=== PATIENT | male | born 1955 | race Caucasian/White ===

== ENCOUNTER 2022-11-19 19:33 | Inpatient (IN) | payer OTHER ==
[~2022-11-19 19:33] MED LIST: Iopamidol 300 61% 100 ML VIAL FS ONE
[2022-11-19] MEDS ORDERED: Ipratropium/Albuterol 3 ML NEB ONE ×2 (19:45→20:08)
[2022-11-19] MEDS ORDERED: Furosemide 40 MG/4 ML VIAL ONE (19:58)
[2022-11-19] MEDS ORDERED: methylPREDNISolone Sod Succ/PF 125 MG/2 ML VIAL ONE (19:58)
[2022-11-19] MEDS ORDERED: Magnesium 2 GM/50 ML BAG (IN WATER) ONE (19:59)
[2022-11-19 20:07] LABS: #Basophils 0.1 10x3/uL (0.0-0.2); #Eosinphils 0.2 10x3/uL (0.0-0.5); #Monocytes 0.7 10x3/uL (0.0-1.1); #Neutrophils 6.5 10x3/uL (1.5-8.4); %Basophils 0.6 % (0.0-2.0); %Lymphocytes 20.3 % (18.0-47.0); %Monocytes 7.3 % (0.0-10.0); %Neutrophils 69.4 % (40.0-75.0); Hemoglobin 12.4 g/dL (13.5-17.5); Mean Corpuscular HGB CONC 31.5 g/dL (32.0-36.0); Mean Corpuscular Hemoglobin 28.2 pg (27.0-33.0); Mean Corpuscular Volume 89.7 fl (81.2-95.1); Mean Platelet Volume 11.3 fl (7.4-10.4); Platelet Count 192 10x3/uL (150-450); RBC Distribution Width 15.9 % (11.5-14.5); Red Blood Cell (RBC) Count 4.39 10x6/uL (4.32-5.72); White Blood Cell (WBC) Count 9.4 10x3/uL (3.5-10.5)
[2022-11-19 20:18] LABS: Acetaminophen Less than 10.0 mcg/mL (10.0-30.0); Alcohol Less than 10 mg/dL (Less than 10); D-Dimer Test 1.59 mg/L FEU (0.19-0.50); INR-International Normal Ratio 1.1; PTT 25.5 sec (22.0-33.0); Prothrombin Time 11.6 sec (9.5-12.1); Salicylate Less than 8.0 mg/dL (15.0-30.0)
[2022-11-19 20:19] LABS: ALT (SGPT) 11 U/L (8-55); AST (SGOT) 22 U/L (5-34); Albumin 4.1 g/dL (3.4-4.8); Alkaline Phosphatase 82 U/L (40-110); Anion Gap 13 mmol/L (10-20); BUN (Urea Nitrogen) 17 mg/dL (8.4-25.7); Bilirubin, Total 1.2 mg/dL (0.2-1.2); Calc. Creatinine Clearance 0 mL/min (70-130); Calcium 8.8 mg/dL (7.8-10.44); Carbon Dioxide 26 mmol/L (23-31); Chloride 105 mmol/L (98-107); Estimated GFR 54; Globulin 3.5 g/dL (2.4-3.5); Glucose 157 mg/dL (80-115); Lipase 11 U/L (8-78); Magnesium 2.5 mg/dL (1.6-2.6); Potassium 4.5 mmol/L (3.5-5.1); Protein, Total 7.6 g/dL (5.8-8.1); Sodium 139 mmol/L (136-145)
[2022-11-19 20:24] LABS: Actual Bicarbonate (HCO3v) 26 mEq/L (22-28); Base Excess -2.6 mEq/L (-2 - +2); Calcium, Ionized (venous) 1.15 mmol/L (1.16-1.32); Chloride (VBG) 105 mmol/L (98-106); Hemoglobin (Hb) 13.8 g/dL (12.6-17.4); Potassium (VBG) 4.78 mmol/L (3.70-5.30); Puncture Site Other Site; Sodium 142.3 mmol/L (133-146); pH (venous) 7.25 (7.32-7.43)
[2022-11-19 20:55] LABS: SARS-CoV-2 NAA Rapid Test Not Detected (NotDetected)
[2022-11-19] MEDS ORDERED: Nitroglycerin 50 MG/250 ML BOT 250 ML ONE (21:42)
[2022-11-19 22:11] LABS: Troponin I 0.029 ng/mL (< 0.028)
[2022-11-19] MEDS ORDERED: Ondansetron PF 4 MG/2 ML Vial IVP PRN (22:19)
[2022-11-19] MEDS ORDERED: Guaifenesin DM 100-10/5 ML UDCUP PO PRN (22:19)
[2022-11-19] MEDS ORDERED: Dextrose 5% in Water 1,000 ML IV PRN (22:19)
[2022-11-19] MEDS ORDERED: Acetaminophen 325 MG TAB PO PRN (22:19)
[2022-11-19] MEDS ORDERED: Dextrose 50% Abboject 50 ML SYRINGE SLOW IVP PRN (22:19)
[2022-11-19] MEDS ORDERED: Calcium Carbonate 500 MG ChewTAB PO PRN (22:19)
[2022-11-19] MEDS ORDERED: Senokot S 8.6-50 MG TAB PO PRN (22:19)
[2022-11-19] MEDS ORDERED: Ipratropium/Albuterol 3 ML NEB NEB PRN (22:26)
[2022-11-19 22:42] LABS: Actual Bicarbonate (HCO3v) 26 mEq/L (22-28); Base Excess -1.2 mEq/L (-2 - +2); Calcium, Ionized (venous) 1.15 mmol/L (1.16-1.32); Chloride (VBG) 101 mmol/L (98-106); Hemoglobin (Hb) 14.1 g/dL (12.6-17.4); Potassium (VBG) 4.41 mmol/L (3.70-5.30); Puncture Site RBA; Sodium 158.1 mmol/L (133-146); pH (venous) 7.29 (7.32-7.43)
[2022-11-19] MEDS ORDERED: Nitroglycerin 50 MG/250 ML BOT 250 ML IVPB SCH (23:59)
[2022-11-20] MEDS ORDERED: FLU VACC QS2022-23(65YR UP)/PF 240 MCG/0.7 ML SYRINGE IM ONE (01:30)
[2022-11-20 04:54] LABS: Anion Gap 21 mmol/L (10-20); BUN (Urea Nitrogen) 20 mg/dL (8.4-25.7); Calc. Creatinine Clearance 64 mL/min (70-130); Calcium 9.7 mg/dL (7.8-10.44); Carbon Dioxide 19 mmol/L (23-31); Chloride 104 mmol/L (98-107); Estimated GFR 56; Glucose 153 mg/dL (80-115); Sodium 139 mmol/L (136-145)
[2022-11-20 04:55] LABS: Potassium 5.3 mmol/L (3.5-5.1)
[2022-11-20] MEDS: Furosemide 40 MG/4 ML VIAL SLOW IVP SCH ×2 (06:12→13:32)
[2022-11-20] MEDS: HumaLOG 300 UNITS/3 ML VIAL SC PRN ×3 (06:13→16:27)
[2022-11-20] MEDS: Mometasone/Formoterol 200/5 60 PUFF INH SCH ×2 (07:50→19:25)
[2022-11-20] MEDS ORDERED: Lantus 1000 UNITS/10 ML VIAL ONE (08:43)
[2022-11-20] MEDS: Lantus 1000 UNITS/10 ML VIAL SC SCH (09:08)
[2022-11-20] MEDS: Carvedilol 6.25 MG TAB PO SCH ×2 (09:09→16:17)
[2022-11-20] MEDS: Clopidogrel Bisulfate 75 MG TAB PO SCH (09:09)
[2022-11-20] MEDS: Famotidine 20 MG TAB PO SCH ×2 (09:09→20:10)
[2022-11-20] MEDS: Aspirin 81 mg Enteric Coated Tablet PO SCH (09:09)
[2022-11-20] MEDS: Losartan 25 MG TAB PO SCH (09:09)
[2022-11-20 12:39] LABS: Potassium 4.6 mmol/L (3.5-5.1)
[2022-11-20] MEDS: hydrALAZINE 20 MG/ML VIAL SLOW IVP PRN (13:32)
[2022-11-20] MEDS ORDERED: hydrALAZINE 20 MG/ML VIAL ONE (13:33)
[2022-11-20] MEDS: hydrALAZINE 25 MG TAB PO SCH ×2 (15:12→20:10)
[2022-11-20] MEDS: Simvastatin 10 MG TAB PO SCH (20:10)
[2022-11-20] MEDS: DULoxetine 30 MG CAP PO SCH (20:10)
[2022-11-21] MEDS: HumaLOG 300 UNITS/3 ML VIAL SC PRN ×4 (00:34→21:09)
[2022-11-21 04:16] LABS: Anion Gap 15 mmol/L (10-20); BUN (Urea Nitrogen) 41 mg/dL (8.4-25.7); Calc. Creatinine Clearance 51 mL/min (70-130); Calcium 9.4 mg/dL (7.8-10.44); Carbon Dioxide 24 mmol/L (23-31); Cardiac Risk 3.9 (Less than 4.5); Chloride 103 mmol/L (98-107); Cholesterol 152 mg/dl (< 200 Desired); Estimated GFR 43; Glucose 184 mg/dL (80-115); HDL Cholesterol 39 mg/dL (>60 Neg Risk); LDL Cholesterol, Calculated 94 mg/dL; Potassium 4.4 mmol/L (3.5-5.1); Sodium 138 mmol/L (136-145); Triglycerides 94 mg/dL (Less than 150)
[2022-11-21] MEDS: Furosemide 40 MG/4 ML VIAL SLOW IVP SCH (05:49)
[2022-11-21] MEDS: Mometasone/Formoterol 200/5 60 PUFF INH SCH ×2 (08:22→19:20)
[2022-11-21] MEDS: Losartan 25 MG TAB PO SCH (08:27)
[2022-11-21] MEDS: Carvedilol 6.25 MG TAB PO SCH ×3 (08:27→17:45)
[2022-11-21] MEDS: hydrALAZINE 25 MG TAB PO SCH ×3 (08:27→20:10)
[2022-11-21] MEDS: Clopidogrel Bisulfate 75 MG TAB PO SCH (08:27)
[2022-11-21] MEDS: Aspirin 81 mg Enteric Coated Tablet PO SCH (08:27)
[2022-11-21] MEDS: Lantus 1000 UNITS/10 ML VIAL SC SCH (08:28)
[2022-11-21 12:37] LABS: Bilirubin Neg (Negative); Blood, Urine Negative (Negative); Clarity Clear (Clear); Glucose, Urine (Dipstick) Normal (Negative); Ketone, Urine Negative (Negative); Leukocyte Negative (Negative); Nitrite Negative (Negative); Protein, Urine (Dipstick) Negative (Neg-Trace); Urobilinogen Normal mg/dL (Less than 2)
[2022-11-21 12:56] LABS: pH, Urine 6.5 (5.0-9.0)
[2022-11-21 13:14] LABS: Bacteria/HPF None Seen HPF (None Seen); CAUTI Indications for Culture Dysuria,urgency,freq; RBC/HPF None Seen HPF (0-3); Squamous Epithelial None Seen HPF (0-3); Urine Culture Reflex No No; WBC/HPF None Seen HPF (0-3)
[2022-11-21 14:18] LABS: Creatinine, Urine 47.26 mg/dL (63-166)
[2022-11-21] MEDS: DULoxetine 30 MG CAP PO SCH (20:10)
[2022-11-21] MEDS: Simvastatin 10 MG TAB PO SCH (20:12)
[2022-11-21] MEDS: Famotidine 20 MG TAB PO SCH (20:12)
[2022-11-21] MEDS ORDERED: Losartan Potassium 50 MG TAB PO SCH (21:00)
[2022-11-22] MEDS ORDERED: hydrALAZINE 20 MG/ML VIAL ONE (00:10)
[2022-11-22] MEDS: hydrALAZINE 20 MG/ML VIAL SLOW IVP PRN (04:29)
[2022-11-22] MEDS: Mometasone/Formoterol 200/5 60 PUFF INH SCH ×2 (07:52→19:43)
[2022-11-22 08:04] LABS: Albumin 3.7 g/dL (3.4-4.8); Anion Gap 14 mmol/L (10-20); BUN (Urea Nitrogen) 36 mg/dL (8.4-25.7); BUN/Creatinine Ratio 24.49; Calc. Creatinine Clearance 61 mL/min (70-130); Calcium 9.1 mg/dL (7.8-10.44); Carbon Dioxide 22 mmol/L (23-31); Chloride 106 mmol/L (98-107); Estimated GFR 52; Glucose 126 mg/dL (80-115); Potassium 4.3 mmol/L (3.5-5.1); Sodium 138 mmol/L (136-145)
[2022-11-22 08:09] LABS: Hemoglobin 13.1 g/dL (13.5-17.5); Mean Corpuscular HGB CONC 32.2 g/dL (32.0-36.0); Mean Corpuscular Hemoglobin 27.8 pg (27.0-33.0); Mean Corpuscular Volume 86.4 fl (81.2-95.1); Mean Platelet Volume 11.5 fl (7.4-10.4); Platelet Count 205 10x3/uL (150-450); RBC Distribution Width 16.9 % (11.5-14.5); Red Blood Cell (RBC) Count 4.71 10x6/uL (4.32-5.72)
[2022-11-22 08:10] LABS: #Basophils 0.1 10x3/uL (0.0-0.2); #Eosinphils 0.2 10x3/uL (0.0-0.5); #Monocytes 1.1 10x3/uL (0.0-1.1); #Neutrophils 5.7 10x3/uL (1.5-8.4); %Basophils 0.5 % (0.0-2.0); %Eosinophils 1.8 % (0.0-6.0); %Lymphocytes 27.3 % (18.0-47.0); %Monocytes 10.9 % (0.0-10.0); %Neutrophils 58.9 % (40.0-75.0)
[2022-11-22] MEDS: Aspirin 81 mg Enteric Coated Tablet PO SCH (08:42)
[2022-11-22] MEDS: Losartan Potassium 50 MG TAB PO SCH (08:42)
[2022-11-22] MEDS: hydrALAZINE 25 MG TAB PO SCH ×2 (08:42→14:59)
[2022-11-22] MEDS: Lantus 1000 UNITS/10 ML VIAL SC SCH (08:43)
[2022-11-22] MEDS: Clopidogrel Bisulfate 75 MG TAB PO SCH (08:43)
[2022-11-22] MEDS: Carvedilol 6.25 MG TAB PO SCH ×4 (08:43→17:10)
[2022-11-22] MEDS ORDERED: hydrALAZINE 20 MG/ML VIAL SLOW IVP PRN (11:05)
[2022-11-22] MEDS ORDERED: Carvedilol 12.5 MG TAB PO SCH (17:00)
[2022-11-22] MEDS: HumaLOG 300 UNITS/3 ML VIAL SC PRN ×2 (17:10→22:03)
[2022-11-22] MEDS ORDERED: NIFEdipine XL 30 MG TAB PO SCH (18:30)
[2022-11-22] MEDS: Famotidine 20 MG TAB PO SCH (20:50)
[2022-11-22] MEDS: DULoxetine 30 MG CAP PO SCH (20:50)
[2022-11-22] MEDS: Simvastatin 10 MG TAB PO SCH (20:51)
[2022-11-22] MEDS: NIFEdipine XL 30 MG TAB PO SCH (20:59)
[2022-11-23] MEDS: HumaLOG 300 UNITS/3 ML VIAL SC PRN ×2 (04:39→11:06)
[2022-11-23 04:45] VITALS: BMI 29.8
[2022-11-23 06:35] LABS: Albumin 3.7 g/dL (3.4-4.8); Anion Gap 14 mmol/L (10-20); BUN (Urea Nitrogen) 28 mg/dL (8.4-25.7); BUN/Creatinine Ratio 20.29; Calc. Creatinine Clearance 62 mL/min (70-130); Calcium 9.1 mg/dL (7.8-10.44); Carbon Dioxide 19 mmol/L (23-31); Chloride 108 mmol/L (98-107); Estimated GFR 56; Glucose 170 mg/dL (80-115); Phosphorus 2.8 mg/dL (2.3-4.7); Potassium 4.3 mmol/L (3.5-5.1); Sodium 137 mmol/L (136-145)
[2022-11-23] MEDS: Mometasone/Formoterol 200/5 60 PUFF INH SCH ×2 (07:23→19:29)
[2022-11-23] MEDS ORDERED: Sodium Bicarbonate Tab 325 MG TAB PO SCH (09:00)
[2022-11-23] MEDS: Clopidogrel Bisulfate 75 MG TAB PO SCH (10:52)
[2022-11-23] MEDS: Carvedilol 6.25 MG TAB PO SCH ×2 (10:52→21:24)
[2022-11-23] MEDS: Losartan Potassium 50 MG TAB PO SCH (10:53)
[2022-11-23] MEDS: NIFEdipine XL 30 MG TAB PO SCH (10:53)
[2022-11-23] MEDS: Aspirin 81 mg Enteric Coated Tablet PO SCH (10:53)
[2022-11-23] MEDS: Lantus 1000 UNITS/10 ML VIAL SC SCH (11:06)
[2022-11-23] MEDS ORDERED: NIFEdipine XL 30 MG TAB PO SCH (13:30)
[2022-11-23] MEDS: Furosemide 40 MG/4 ML VIAL SLOW IVP SCH (19:24)
[2022-11-23] MEDS ORDERED: NIFEdipine XL 60 MG TAB PO SCH (21:00)
[2022-11-23 23:55] VITALS: BP 125/70; TEMP 99.7
== END 2022-11-23 18:20 | DRG 291 ==
LOC: EDBD 19:33 → CSHERS 19:33 → EEVIPCON 19:33 → CSHIMCU 23:00 → CSHTELE 11-22 20:05
PROVIDERS: ADMIT Student in an Organized Health Care Education/Training Program; ATTEND Internal Medicine
PROC: 5A09357 Assistance with Respiratory Ventilation, Less than 24 Consecutive Hours, Continuous Positive Airway Pressure (ICD-10-PCS; principal; 2022-11-19)
DX: I13.0 Hypertensive heart and chronic kidney disease with heart failure and stage 1 through stage 4 chronic kidney disease, or unspecified chronic kidney disease (principal); I50.31 Acute diastolic (congestive) heart failure; J96.01 Acute respiratory failure with hypoxia; J96.02 Acute respiratory failure with hypercapnia; I16.9 Hypertensive crisis, unspecified; I16.1 Hypertensive emergency; N17.9 Acute kidney failure, unspecified; E87.20 Acidosis, unspecified; J45.909 Unspecified asthma, uncomplicated; E11.22 Type 2 diabetes mellitus with diabetic chronic kidney disease; E78.5 Hyperlipidemia, unspecified; Z20.822 Contact with and (suspected) exposure to COVID-19; E66.9 Obesity, unspecified; N18.9 Chronic kidney disease, unspecified; Z88.0 Allergy status to penicillin; Z88.2 Allergy status to sulfonamides; Z86.73 Personal history of transient ischemic attack (TIA), and cerebral infarction without residual deficits; Z91.010 Allergy to peanuts; Z88.8 Allergy status to other drugs, medicaments and biological substances; Z68.29 Body mass index [BMI] 29.0-29.9, adult
CPT/HCPCS: 36415; 36416; 36600; 71045; 71275; 76770; 80048; 80053; 80061; 80069; 80307; 81001; 82570; 82805; 83605; 83690; 83735; 83880; 84156; 84300; 84443; 84484; 84540; 85025; 85379; 85610; 85730; 87040; 93005; 93010; 93306; 94640; 94660; 94664; 94760; 96365; 96375; J0360; J1650; J1815; J1940; J2930; J3475; J7620; Q9967